=== PATIENT | female | born 1975 | race Caucasian/White ===

== ENCOUNTER → 2024-02-15 14:19 | Outpatient (REF) | payer BC, SELFPAY | LOC: HWRAD 14:19 | PROVIDERS: ATTENDING PHYSICIAN Obstetrics & Gynecology; FAMILY PHYSICIAN Nurse Practitioner Family | DX: Z12.31 Encounter for screening mammogram for malignant neoplasm of breast (principal); N91.2 Amenorrhea, unspecified | CPT/HCPCS: 76830; 76856 ==

== ENCOUNTER → 2024-02-25 09:58 | Outpatient (REF) | payer BC, SELFPAY | LOC: WDC 09:58 | PROVIDERS: ATTENDING PHYSICIAN Obstetrics & Gynecology; FAMILY PHYSICIAN Nurse Practitioner Family | DX: R92.8 Other abnormal and inconclusive findings on diagnostic imaging of breast (principal) | CPT/HCPCS: 76642 ==

== ENCOUNTER 2024-05-08 05:59 | Emergency (ER) | payer BC, SELFPAY ==
[2024-05-08 06:02] VITALS: BP 152/102
[2024-05-08 06:16] VITALS: BMI 35.9
--- NOTE | 2024-05-08 06:22 | ED.GENMED ---
History of Present Illness
General
Chief Complaint: Chest Pain
Source: patient
Time Seen by Provider: 05/08/24 06:16
History of Present Illness
History of Present Illness:
48-year-old female presents to the emergency room complaining of chest discomfort. Patient also feeling dizzy and lightheaded. She denies a sense of movement or vertigo. Patient noticed this when she awoke at 430. No associated shortness of
breath or nausea. Patient does not have a history of cardiac disease or hypertension. She does have panic attacks at times. No recent travel. Pain is not worse with deep inspiration.
Past History
Past History
ED Past Medical History: GERD, Psychiatric (depression) and Other (ovarian cyst/dermoid tumors)
ED Past Surgical History: Cholecystectomy and Other (ovarian cystectomy)
Social History
Tobacco: Non-smoker
Alcohol: Occasional
Personal:
Living: with family
Employment: Employed
Family History
Family History: Other (Noncontributory)
Phy Exam
Physical Exam
Physical Exam:
General: Awake, Alert, Oriented X3. No acute distress, high BMI
Vitals: unremarkable
Head: Atraumatic
Eyes: Pupils equal, EOMI
Throat: Airway intact, no exudates
Neck: Trachea midline
Lungs: Clear and equal b/l
Heart: Regular rate, no murmurs
Abd: Soft, Nontender, No pulsatile mass
Neuro: Cranial nerves intact, muscle strength equal bilaterally, cerebellar exam normal
Skin: Warm, dry, no rash
Extremities: pulses equal b/l, no edema
Scores
Heart Score for Chest Pain Patients
STEMI patient?: No
History: Slightly or Non-Suspicious
ECG: Normal
Age: >45 - <65 years
Risk Factors: No Risk Factors
Troponin: </= Normal Limit
Heart Score for Chest Pain Patients: 1
Heart Score Risk: 2.5% MACE over next 6 weeks
Course
Orders/Labs/Results
Orders:
Orders
05/08/24 06:01
Electrocardiogram (*1) Urgent
Reason for Study: Other
Other Reason for Exam: Respiratory Distress
Cardiac Monitoring- Treatment ONCE
IV Insert/Care/Rem.- Treatment PRN
CR Chest - 2 Views Urgent
Comment:
Reason For Exam: respiratory distress
O2 Therapy [RESP] Urgent
Titrate/Wean O2 to maintain O2 sat greater than (%): 93
Special Instructions: TO MAINTAIN CONTINUOUS O2 SATS >/= 93%
Pulse Ox/cont/shift [RESP] Urgent
Quantity: 1
Special Instructions: continuous pulse ox
05/08/24 06:02
EKG- Treatment ONCE
05/08/24 06:34
Complete Blood Count/With Diff Urgent
Comprehensive Metabolic Panel Urgent
NT-proBNP Urgent
Troponin I Urgent
05/08/24 08:14
EKG [Electrocardiogram (*1)] Urgent
Reason for Study: Chest Pain
EKG- Treatment ONCE
05/08/24 08:19
Troponin I Urgent
Abnormal Lab Results
05/08/24
06:34
RBC 3.96 L 10^6/uL
(4.20-5.40)
Hct 35.6 L %
(37.0-47.0)
MCH 32.6 H pg
(27.0-31.0)
Chloride 108 H mmol/L
(98-107)
Carbon Dioxide 18 L mmol/L
(22-30)
Glucose 116 H mg/dl
(70-99)
AST 63 H U/L
(14-36)
ALT 54 H U/L
(0-35)
05/08/24 06:34
05/08/24 06:34
Vital Signs
Initial and Last Documented VS:
Initial Vital Signs
Temp Pulse Resp BP Pulse Ox
98.2 F 92 20 152/102 98
05/08/24 06:02 05/08/24 06:02 05/08/24 06:02 05/08/24 06:02 05/08/24 06:02
Last Documented Vital Signs
Temp Pulse Resp BP Pulse Ox
98.2 F 78 25 140/92 95
05/08/24 06:02 05/08/24 09:30 05/08/24 09:30 05/08/24 09:00 05/08/24 09:30
MDM/Problems Addressed
Differential Diagnosis Includes:
Chest wall discomfort, angina, anxiety, spontaneous pneumothorax
MDM/Problems Addressed:
Patient presents with chest pain. Her examination here is benign. Labs show very mild elevation of her LFTs. This may be due to her daily alcohol consumption. Patient instructed to have it rechecked in a month or so by her primary. EKG showed
no ischemic changes x 2. Troponins normal x 2. Patient stable for discharge home and outpatient follow-up
*Radiology
Radiology exam reviewed: preliminary read by ED provider (Personally viewed patient's chest x-ray see no acute disease)
*Pulse Oximetry
Patient hypoxic: no
*EKG
Interpreted by ED Provider?: Yes
Interpretation: normal
Comparison EKG: no changes
Heart Rate: 98
Rate: normal
Rhythm: sinus
Clare: normal axis
Interval: normal interval
QRS Pattern: normal QRS
Ischemia: no ischemia
*[employer] Interpretation
Rate: normal
Interpretation: normal
Heart Rate: 98
Rhythm: sinus
*Critical Care Note
Total Time (30-74mins, 75-104mins- exclusive of procedures): Not Applicable
ED Attending Note
-
Portions of this chart may have been created with voice recognition software.� Occasional wrong word or��sound alike� substitutions may have occurred due to the inherent limitations of voice recognition software.
Discharge Plan
Departure
Patient Disposition: Home (Routine Discharge)
Date of Disposition: 05/08/24
Time of Disposition: 09:09
Patient with high blood pressure during this ER visit?: No
Condition: Good
Discharge Problem:
Chest pain
Instructions: Chest Pain PCP Follow Up, BLOOD PRESSURE
Prescriptions:
No Action
fluoxetine [Prozac] 40 mg Capsule
120 mg PO DAILY
spironolactone 100 mg Tablet
150 mg PO DAILY
Referrals:
Hilary Patricia CRNP [Family Provider] -
Interventions
Interventions:
*Risk Screen - Suicide Last Done: 05/08/24 06:02
*General Assessment Last Done: 05/08/24 06:02
*Neglect/Abuse Screening Last Done: 05/08/24 06:02
ED- Fall Risk Assessment Last Done: 05/08/24 06:02
*ED COVID-19 Vaccine History Last Done: 05/08/24 06:02
*Nursing Disposition Last Done: 05/08/24 09:47
ED- Cardiac Assessment Last Done: 05/08/24 06:25
Discharge Date and Time
Discharge Date/Time: 05/08/24 09:45
Print Language: CANADIAN
[2024-05-08 06:24] VITALS: BP 125/92
[2024-05-08 06:44] LABS: % Basophils 0.5 % (0-2); % Eosinophils 1.6 % (0-6); % Immature Granulocytes 0.5 % (0-0.5); % Lymphocytes 28.5 % (20.5-51.1); % Monocytes 6.4 % (1.7-9.3); % Neutrophils 62.5 % (42.2-75.2); Absolute Eosinophils 0.1 10^3/uL (0-0.7); Absolute Lymphocytes 2.2 10^3/uL (1.2-3.4); Absolute Monocytes 0.5 10^3/uL (0.1-0.6); Absolute Neutrophils 4.7 10^3/uL (1.4-6.5); Hematocrit 35.6 % (37.0-47.0); Hemoglobin 12.9 g/dL (12.0-16.0); Mean Corp Hgb Conc. 36.2 g/dL (33.0-37.0); Mean Corpuscular Hgb 32.6 pg (27.0-31.0); Mean Corpuscular Volume 89.9 fL (81.0-99.0); Mean Platelet Volume 10.4 fL (7.4-10.4); Nucleated Red Blood Cells % 0.3 %; Platelet Count 270 10^3/uL (130-400); Red Blood Cell Count 3.96 10^6/uL (4.20-5.40); Red Cell Dist. Width 11.9 % (11.5-14.5); White Blood Cell Count 7.5 10^3/uL (4.8-10.8)
[2024-05-08 07:08] LABS: ALT (SGPT) 54 U/L (0-35); AST (SGOT) 63 U/L (14-36); Albumin 4.4 g/dl (3.5-5.0); Alkaline Phosphatase 88 U/L (38-126); Blood Urea Nitrogen 8 mg/dl (7-17); Calcium 9.3 mg/dl (8.4-10.2); Carbon Dioxide 18 mmol/L (22-30); Chloride 108 mmol/L (98-107); Estimated Creatinine Clearance 120 ml/min; Glucose 116 mg/dl (70-99); Potassium 4.3 mmol/L (3.5-5.1); Sodium 136 mmol/L (135-145); Total Bilirubin 0.5 mg/dl (0.2-1.3); Total Protein 6.9 g/dl (6.3-8.2); eGFR > 60.00
[2024-05-08 07:16] LABS: NT-proBNP < 20.0 pg/ml; Troponin I < 0.012 ng/ml
[2024-05-08 08:00] VITALS: BP 142/90
[2024-05-08 08:57] LABS: Troponin I < 0.012 ng/ml
[2024-05-08 09:00] VITALS: BP 140/92
--- NOTE | 2024-05-08 09:46 | EDRN ---
Discharge instructions reviewed with patient. Verbalized understanding. Ambulated with steady gait to the lobby.
== END 2024-05-08 09:45 | disposition home or self-care (01) ==
LOC: EMR 05:59
PROVIDERS: EMERGENCY PHYSICIAN Emergency Medicine; FAMILY PHYSICIAN Nurse Practitioner Family
DX: R07.89 Other chest pain (principal); R42 Dizziness and giddiness; K21.9 Gastro-esophageal reflux disease without esophagitis; F32.A Depression, unspecified; F41.0 Panic disorder [episodic paroxysmal anxiety]; Z90.49 Acquired absence of other specified parts of digestive tract; Z91.018 Allergy to other foods
CPT/HCPCS: 99285; 94760; 71046; 80053; 83880; 84484; 85025; 93005

== ENCOUNTER → 2025-02-27 09:20 | Outpatient (REF) | payer BC, SELFPAY | LOC: HWWDC 09:20 | PROVIDERS: ATTENDING PHYSICIAN Nurse Practitioner Family; FAMILY PHYSICIAN Nurse Practitioner Family; REFERRING PHYSICIAN Obstetrics & Gynecology | DX: Z12.31 Encounter for screening mammogram for malignant neoplasm of breast (principal); N95.0 Postmenopausal bleeding | CPT/HCPCS: 76830; 76856; 77063; 77067 ==

== ENCOUNTER 2025-03-02 17:25 | Emergency (ER) | payer BC, SELFPAY ==
[2025-03-02 17:37] VITALS: BP 194/104
[2025-03-02 17:43] VITALS: BP 179/104; BP 181/107
[2025-03-02 18:06] LABS: % Basophils 0.8 % (0-2); % Eosinophils 1.5 % (0-6); % Immature Granulocytes 0.3 % (0-0.5); % Lymphocytes 32.2 % (20.5-51.1); % Monocytes 6.3 % (1.7-9.3); % Neutrophils 58.9 % (42.2-75.2); Absolute Basophils 0.1 10^3/uL (0-0.2); Absolute Eosinophils 0.1 10^3/uL (0-0.7); Absolute Lymphocytes 2.8 10^3/uL (1.2-3.4); Absolute Monocytes 0.6 10^3/uL (0.1-0.6); Absolute Neutrophils 5.2 10^3/uL (1.4-6.5); Hematocrit 36.9 % (37.0-47.0); Mean Corp Hgb Conc. 35.2 g/dL (33.0-37.0); Mean Corpuscular Volume 93.7 fL (81.0-99.0); Mean Platelet Volume 10.4 fL (7.4-10.4); Nucleated Red Blood Cells % 0 %; Platelet Count 278 10^3/uL (130-400); Red Blood Cell Count 3.94 10^6/uL (4.20-5.40); Red Cell Dist. Width 12.2 % (11.5-14.5); White Blood Cell Count 8.8 10^3/uL (4.8-10.8)
[2025-03-02 18:13] LABS: INR 0.97; PT 13.2 Sec (11.4-14.6)
[2025-03-02 18:27] LABS: ALT (SGPT) 34 U/L (0-35); AST (SGOT) 43 U/L (14-36); Albumin 4.2 g/dl (3.5-5.0); Alkaline Phosphatase 79 U/L (38-126); Blood Urea Nitrogen 11 mg/dl (7-17); Calcium 9.5 mg/dl (8.4-10.2); Carbon Dioxide 26 mmol/L (22-30); Chloride 106 mmol/L (98-107); Glucose 107 mg/dl (70-99); Lipase 126 U/L (23-300); Potassium 4.6 mmol/L (3.5-5.1); Sodium 139 mmol/L (135-145); Total Bilirubin 0.4 mg/dl (0.2-1.3); Total Protein 7.1 g/dl (6.3-8.2); eGFR > 60.00
[2025-03-02 18:37] LABS: Troponin I < 0.012 ng/ml
== END 2025-03-02 21:17 | disposition left against medical advice (07) ==
LOC: EMR 17:25
PROVIDERS: EMERGENCY PHYSICIAN Emergency Medicine
DX: R07.9 Chest pain, unspecified (principal); Z53.21 Procedure and treatment not carried out due to patient leaving prior to being seen by health care provider
CPT/HCPCS: 80053; 83690; 84484; 85025; 85610; 93005

== ENCOUNTER 2025-05-19 06:13 | Day surgery (SDC) | payer BC, SELFPAY ==
[2025-05-19] MEDS: NORMOSOL-R/PLASMALYTE-A 1000 IV (09:58)
[2025-05-19 10:05] VITALS: BMI 33.8
[2025-05-19 10:15] VITALS: BMI 33.8
[2025-05-19 11:12] VITALS: BP 151/90; BP 155/94
[2025-05-19 11:15] VITALS: BP 151/90
[2025-05-19 11:30] VITALS: BP 146/84
[2025-05-19 11:55] VITALS: BP 143/99
[2025-05-19 12:10] VITALS: BP 141/87
== END 2025-05-19 12:36 | disposition home or self-care (01) ==
LOC: SDS 06:13
PROVIDERS: ATTENDING PHYSICIAN Obstetrics & Gynecology
DX: N95.0 Postmenopausal bleeding (principal); Q51.3 Bicornate uterus
CPT/HCPCS: 58558